=== PATIENT | male | born 1960 | race Caucasian/White ===

== ENCOUNTER 2016-08-29 05:10 | Inpatient (IN) | payer OTHER ==
[~2016-08-29] VITALS: Ht 185.4 cm; Wt 104.3 kg
[~2016-08-29 05:10] MED LIST: CRESTOR40 M2 PO; LISINOPRIL10 M1 PO; MARI PO; MIRTAZAPINE15 M2 PO; OXYCODONE HCL15 M1 PO; ZOLOFT100 M1 PO
--- NOTE | 2016-08-29 12:24 | Patient Discharge Instructions ---
Discharge Instructions General Discharge Information You were seen/treated for: Right knee OA/DJD You had these procedures: 08/29/2016 right total knee arthroplasty Watch for these problems: Redness, swelling, fever, signs of infection. Uncontrolled pain, Excessive bleeding. Decreased range of motion or unable to bear weight. Chest pain, shortness of breath. Call Surgeon to remove: Nick (14 DAYS) Do not soak the wound: Yes No bath, but you may shower: Yes Other wound care: Daily dry dressing changes starting postop day #2 Diet Continue normal diet: Yes Activity Activity Self Limited: Yes Activity Limited to: Weight bear as tolerated Additional ACTIVITY Info: Daily physical therapy Acute Coronary Syndrome Inclusion Criteria At DC or during hospital stay patient has or had the following: ACS DIAGNOSIS No Discharge Core Measures Meds if any: Prescribed or Continued at Discharge Meds if any: NOT Prescribed or Continued at Discharge Congestive Heart Failure Inclusion Criteria At DC or during hospital stay patient has or had the following: CHF DIAGNOSIS No Discharge Core Measures Meds if any: Prescribed or Continued at Discharge Meds if any: NOT Prescribed or Continued at Discharge Cerebrovascular accident Inclusion Criteria At DC or during hospital stay patient has or had the following: CVA/TIA Diagnosis No Discharge Core Measures Meds if any: Prescribed or Continued at Discharge Meds if any: NOT Prescribed or Continued at Discharge Venous thromboembolism Inclusion Criteria VTE Diagnosis No VTE Type NONE VTE Confirmed by (Test) NONE Discharge Core Measures - Per Current guidelines, there needs to be overlap - treatment for the first 5 days of Warfarin therapy. - If discharged on Warfarin prior to 5 days of - overlap therapy, the patient will need to be - assessed for post discharge needs including - *Post discharge parental anticoagulation - *Warfarin and/or parental anticoagulation education - *Follow up date to check INR post discharge At least 5 days overlap therapy as Inpatient No Meds if any: Prescribed or Continued at Discharge Note: Overlap Therapy is Warfarin and Anticoagulant Meds if any: NOT Prescribed or Continued at Discharge
[2016-08-29] MEDS ORDERED: MIRALAX17 G1 PO (12:26)
[2016-08-29] MEDS ORDERED: ASPIRIN325 M2 PO (12:26)
[2016-08-29] MEDS ORDERED: MORPHINE SULFAT30 M3 PO (12:26)
[2016-08-29] MEDS ORDERED: COLACE100 M1 PO (12:26)
[2016-08-29] MEDS ORDERED: DILAUDID4 M1 PO (12:26)
--- NOTE | 2016-08-29 12:27 | Admission Core Measures ---
Admission Meds I reviewed the following Meds: Current Medications Sig/Alfred Start time Last Medication Dose Stop Time Status Admin Acetaminophen 975 MG ONCE 08/29 NR (Tylenol) 08/29 2358 Atorvastatin Calcium 80 MG 1700 08/29 170 UNVr (Lipitor) Cefazolin Sodium 2,000 MG ONCE 08/29 0000 NR (Kefzol-Ancef Inj) 08/29 2358 Lisinopril 10 MG DAILY 08/30 1000 UNVr (Prinivil) Mirtazapine 15 MG AT BEDTIME 08/29 2199 UNVr (Remeron) Oxycodone HCl 10 MG ONCE 08/29 0000 NR (Roxicodone) 08/29 2358 Sertraline HCl 100 MG BID 08/29 2199 UNVr (Zoloft) Acute Coronary Syndrome Inclusion Criteria ACS Diagnosis No Inpatient Core Measures LDL Reminder: If No, please order W/I first 24hr of stay Congestive Heart Failure Inclusion Criteria CHF Diagnosis No Cerebrovascular accident Inclusion Criteria CVA/TIA Diagnosis No Inpatient Core Measures Bedside Swallow Eval Reminder: If BSE failed, place ST order Antithrombotic Reminder: Order Antithrombotic Medication by end of day 2 Antithrombotic Reminder: Document Reason Antithrombotic Not ordered by end of day 2 AFIB/Flutter Reminder: If Present, add to problem list AFIB/Flutter Reminder: Order Anticoag Medication for pts with AFIB/Flutter Atherosclerosis Reminder: If Present, add to problem list LDL Reminder: If No, please order W/I first 24hr of stay PT Order Reminder: If No, please order Venous thromboembolism Inpatient Core Measures VTE Risk Factors: Age > 40, Obesity, Surgery VTE Prophylaxis Ordered Inpt [facility] Pharm No [facility] VTE prophylaxis d/t No contraindications No VTE Pharm Prophylaxis d/t No contraindications Inclusion Criteria - Per Current guidelines, there needs to be overlap - treatment for the first 5 days of Warfarin therapy. - Parenteral Anticoagulation (IV or SC) needs to be - given along with Warfarin therapy. VTE Diagnosis No VTE Type NONE VTE Confirmed by (Test) NONE Problem List As ranked by this Provider includes Assessment & Plan 1. S/P total knee arthroplasty HOME MEDS Home Med List Aspirin (Aspirin*) 325 MG TABLET 1 TAB PO BID BLOOD THINNER Cannabis (Marijuana Oil) 1 amp AMP 1 UNIT PO DAILY PRN PAIN (Reported) Docusate Sodium (Colace) 100 MG CAPSULE 1 CAP PO BID PRN CONSTIPATION Hydromorphone HCl (Dilaudid) 4 MG TABLET 1-2 TAB PO Q4-6H PRN PAIN Lisinopril 10 MG TABLET 1 TAB PO DAILY HTN (Reported) Mirtazapine 15 MG TABLET 1 TAB PO AT BEDTIME SLEEP HELP (Reported) Morphine Sulfate (Morphine Sulfate ER) 30 MG TABLET.ER 1 TAB PO BIDP PAIN Oxycodone HCl 15 MG TABLET 1 TAB PO TID PAIN (Reported) Polyethylene Glycol 3350 (Miralax) 17 GRAM POWD.PACK 1 PAC PO DAILY PRN CONSTIPATION Rosuvastatin Calcium (Crestor) 40 MG TABLET 1 TAB PO DAILY CHOLESTEROL ( Reported) Sertraline HCl (Zoloft) 100 MG TABLET 1 TAB PO BID DEPRESSION (Reported)
--- NOTE | 2016-08-29 12:29 | Discharge Summary ---
Visit Information Visit Dates Admission Date: 08/29/16 Discharge Date: 08/31/06 Hospital Course Course Attending Physician: SJ GARCES MD Primary Care Physician: GALLITO YAN MD Hospital Course: Patient admitted to floor following procedure below. Patient ambulated with PT upon arrival to the floor. Patient continued to progress well. Upon discharge patient is afebrile, tolerating diet, pain controlled, ambulating well with rolling walker and PT. Complications: None Allergies: Coded Allergies: No Known Allergies (08/26/16) Significant Procedures: 08/29/16 right total knee arthroplasty Disposition Summary Disposition Principal Diagnosis: Right knee primary OA/DJD Additional Diagnosis: None Discharge Disposition: home health services Discharge Instructions General Discharge Information Code Status: Full Code Patient's Diet: Resume normal diet Patient's Activity: Weightbearing as tolerated Daily physical therapy Follow-Up Instructions/Appts: Call office to schedule/confirm appointment. Medications at Discharge Discharge Medications: Stop taking the following medications: Oxycodone HCl (Oxycodone HCl) 15 MG TABLET ORAL THREE TIMES DAILY Continue taking these medications: Sertraline HCl (Zoloft) 100 MG TABLET 1 Tablet ORAL TWICE DAILY Rosuvastatin Calcium (Crestor) 40 MG TABLET 1 Tablet ORAL DAILY Lisinopril (Lisinopril) 10 MG TABLET 1 Tablet ORAL DAILY Mirtazapine (Mirtazapine) 15 MG TABLET 1 Tablet ORAL AT BEDTIME Cannabis (Marijuana Oil) 1 amp AMP 1 Unit ORAL DAILY as needed for PAIN Start taking the following new medications: Morphine Sulfate (Morphine Sulfate ER) 30 MG TABLET.ER 1 Tablet ORAL 2 x Daily as needed Qty = 6 No Refills Hydromorphone HCl (Dilaudid) 4 MG TABLET 1-2 Tablet ORAL Q4-6H as needed for PAIN Qty = 36 No Refills Aspirin (Aspirin*) 325 MG TABLET 1 Tablet ORAL TWICE DAILY Qty = 60 No Refills Docusate Sodium (Colace) 100 MG CAPSULE 1 Capsule ORAL TWICE DAILY as needed for CONSTIPATION Qty = 30 No Refills Polyethylene Glycol 3350 (Miralax) 17 GRAM POWD.PACK 1 Packet ORAL DAILY as needed for CONSTIPATION Qty = 14 No Refills Instructions: dissolve in water Copies To: GALLITO YAN MD
--- NOTE | 2016-08-29 14:33 | PN- Orthopedic ---
Subjective Subjective: Post op check Awake post op No pain - pt had spinal anesthesia denies nausea or other complaints Objective Vital Signs and I&Os VSS, afebrile General; alert and oriented times three Chest: clear anteriorly bilaterally, RRR Abd: soft, good bs Ext: warm, no edema, no calf tenderness, positive sensate, good strength BLE On Q in place Wound: RLE wrapped in COLE - dry dressing Assessment/Plan Assessment/Plan 55 yo male s/p R TKR On Q Pain mgmt PT - wbat asa 325mg po bid for dvt ppx Core Measures/Miscellaneous Mauro Catheter Date In: 08/29/16 Still Needed? Yes (24 hrs post op) Venous Thromboembolism VTE Risk Factors: Age > 40, Surgery VTE Contraindications: No Contraindications VTE Prophylaxis Ordered Inpt: Mech & Pharm VTE Diagnosis: No VTE Type: NONE VTE Confirmed by (Test): NONE Beta Matt Is Beta Matt a Home Med? No Antibiotics Is Patient on Antibiotics? Yes If Yes: prophylaxis (24 hrs post op)
--- NOTE | 2016-08-29 15:57 | Operative Report ---
Operative/Inv Procedure Report Surgery Date: 08/29/16 Name of Procedure: Right total knee replacement Pre-Operative Diagnosis: Primary right knee DJD Post-Operative Diagnosis: Same Estimated Blood Loss: 50ml to 100ml Surgeon/Pool Hall Inspector: DEZ UNGER,SJ Mena Anesthesia: block Operative/Procedure Note Note: Description of Procedure: The patient was taken to the operating room and positively identified. After induction of spinal anesthesia and administration of appropriate pre-operative antibiotics, the patient was positioned supine on the operating room table and all bony prominences were well padded. A well-padded pneumatic tourniquet was placed on the right upper thigh. After performing a surgical timeout, the right lower extremity was prepped and draped in the usual sterile fashion. After exsanguination with Esmarch the tourniquet was inflated to 250mm of mercury. A standard medial parapatellar approach was made to the knee. This was carried down through skin and subcutaneous tissue to the level of the fascia. Meticulous hemostasis was maintained with Bovie electrocautery. The extensor mechanism and patellar retinaculum were opened sharply and the patella was everted. The infrapatellar fat was resected in order to improve exposure. Osteophytes were trimmed from the patella and femoral condyles and the patella was re-everted and tucked laterally. A medial release was performed and the cruciate ligaments were resected. The tibia was then subluxed anteriorly. Utilizing the appropriate extra-medullary guide, the proximal tibia was trimmed perpendicular to the long axis of the tibial shaft. Attention was then turned to the femur. After opening the medullary canal, the distal femoral cut was made in 6 degrees of valgus utilizing the appropriate intra-medullary guide. The extension gap was checked and found to be appropriate. The femur was then sized and the remainder of the femoral cuts were made with a size 5 4-in-1 femoral cutting guide. The flexion gap was checked and found to be symmetric and appropriate. The knee was then trialed with a size 5 femoral component, a size X tibial component and a size 9 mm polyethylene insert. The patella was not resurfaced due to its excellent preoperative condition. This yielded excellent range of motion, stability and patellar tracking. All trial components were removed and the knee was copiously irrigated with sterile saline. All components were cemented into place with Parth Simplex cement. All the components were of the [employer] knee system of the above stated sizes. The knee was again irrigated after cementation. The extensor mechanism and patellar retinaculum were repaired using interrupted #1 vicryl suture. The skin was re-approximated with 2-0 vicryl and closed with mary lou. A sterile dressing was applied, the tourniquet was deflated, the patient was awakened and taken to the recovery room in satisfactory condition.
[2016-08-29 17:08] VITALS: BP 130/62
--- NOTE | 2016-08-29 17:08 | NUR ---
NSG NOTE: PATIENT ARRIVED TO FLOOR AT 1708 VIA STRETCHER FROM PACU ACCOMPANIED BY DISTRBUTION; PATIENT A/OX3, RA, VSS (SEE VITALS), DENIES PAIN AT THIS TIME; ON-Q IN PLACE IN RT ADDUCTOR CANAL; +CMS, IVF HUNG PER ORDER; ALPS ON; JONO STOCKING TO LT LEG; COLE WRAP DSG C/D/I TO RT KNEE; IST PROVIDED TO PATIENT AND EXPLAINED USE/IMPORTANCE; ORIENTED TO ROOM, CALL [facility] IN REACH; WILL CONT TO MONITOR
[2016-08-29 20:07] VITALS: BP 120/66
[2016-08-29 23:59] VITALS: BP 104/66
--- NOTE | 2016-08-30 01:03 | NUR ---
PT HAS NOT VOIDED SINCE COMING TO FLOOR. BLADDER SCAN SHOWING >999. PT UNSUCCESSFUL AT VOIDING ON HIS OWN. SURGICAL PA NIKOLE BAL NOTIFIED. VERBAL ORDER RECEIVED TO STRAIGHT CATH X 1. WILL MONITOR.
[2016-08-30 03:04] VITALS: BP 110/62
--- NOTE | 2016-08-30 06:54 | NUR ---
PT HAS NOT VOIDED. BLADDER SCAN SHOWING 230ML. PT DENIES URGE TO VOID AT THIS TIME. SURGICAL PA NOTIFIED. VERBAL ORDER RECEIVED TO MONITOR PT FOR NOW. IF PT STILL HAS NOT VOIDED AFTER WORKING WITH PHYSICAL THERAPY THEN SURGICAL TO BE NOTIFIED FOR STRAIGHT CATH ORDER.
--- NOTE | 2016-08-30 07:01 | PN- Orthopedic ---
Subjective Subjective: No complaints. Required straight catheterization around 1 am for 900 mls of urine. Has not voided since then. Going to try getting up and walking to see if that assists with voiding. Tolerating clears. No nausea. Denies dizziness. No shortness of breath. No chest pains. Objective Vital Signs and I&Os Vital Signs Date Time Temp Pulse Resp B/P Pulse O2 O2 Flow FiO2 Ox Delivery Rate 08/30 0345 92 Nasal 2.0L Cannula 08/30 0304 97.5 54 18 110/62 89 Nasal 2.0L Cannula 08/30 0000 92 Nasal 2.0L Cannula 08/29 2359 97.6 57 18 104/66 90 Nasal 2.0L Cannula 08/29 2006 98.2 66 20 120/66 91 08/29 1931 Room Air Room Air 08/29 1708 97.5 76 18 130/62 94 Room Air Intake & Output 08/30 0800 08/30 0000 / 1600 08/29 0800 08/29 0000 02/ 1600 Intake Total 600 300 Output Total 950 Balance -350 300 Intake, IV 600 300 Output, Urine 950 Patient 230 lb Weight Physical Exam: General - alert & oriented x 3. comfortable. no acute distress. Lungs - clear bilaterally. no w/r/r. Cardiac - s1s2. reg. Abdomen - soft. nontender. Extremities - warm bilaterally. dressing c/d/i. nvi. calves soft and nontender b /l. on q in place. Assessment/Plan Assessment/Plan This 55 year old white male POD#1 s/p R TKR tolerating diet. continue iv fluids until voiding start flomax daily dressing change POD#2 likely remove on q POD#2 continue PT - wbat asa bid - dvt ppx f/u labs d/c planning will d/w Core Measures/Miscellaneous Mauro Catheter Date In: 08/29/16 Venous Thromboembolism VTE Risk Factors: Age > 40, Surgery VTE Contraindications: No Contraindications VTE Prophylaxis Ordered Inpt: [facility]ch [facility] Pharm VTE Diagnosis: No VTE Type: NONE VTE Confirmed by (Test): NONE Beta Matt Is Beta Matt a Home Med? No Antibiotics Is Patient on Antibiotics? Yes If Yes: prophylaxis (24 hrs post op)
[2016-08-30 08:00] LABS: ABSOLUTE BASOPHIL COUNT 0 /CUMM (0.0-0.2); ABSOLUTE EOSINOPHIL COUNT 0 /CUMM (0.0-0.7); ABSOLUTE GRANULOCYTE CT 11.1 /CUMM (1.4-6.5); ABSOLUTE LYMPH COUNT 1.1 /CUMM (1.2-3.4); ABSOLUTE MONOCYTE COUNT 0.5 /CUMM (0.10-0.60); BASOPHIL % 0 % (0.0-2.0); EOSINOPHIL % 0.1 % (0-5); HEMATOCRIT 39.7 % (42-52); MEAN CORPUSCULAR HGB CONC 33.5 G/DL (33.0-37.0); MEAN CORPUSCULAR VOLUME 86.6 FL (80.0-94.0); MEAN PLATELET VOLUME 10.1 FL (7.4-10.4); RBC DISTRIBUTION WIDTH 14.7 % (11.5-14.5); RED BLOOD CELL CT 4.58 /CUMM (4.70-6.10); WHITE BLOOD CELL COUNT 12.7 /CUMM (4.8-10.8)
[2016-08-30 08:35] LABS: PLATELET COUNT 164 /CUMM (130-400)
[2016-08-30 08:36] LABS: GRANULOCYTE % 87.3 % (42.2-75.2)
[2016-08-30 08:47] VITALS: BP 126/84
[2016-08-30 12:06] VITALS: BP 124/64
[2016-08-30 16:23] VITALS: BP 140/72
[2016-08-30 23:11] VITALS: BP 152/88
--- NOTE | 2016-08-31 07:07 | PN- Orthopedic ---
Subjective Subjective: POD#2 S/P RIGHT TKA NO COMPLAINTS THIS AM DENIES CP, SOB, NO N+V WITH DIET DOING WELL WITH PT Objective Vital Signs and I&Os Vital Signs Date Time Temp Pulse Resp B/P Pulse O2 O2 Flow FiO2 Ox Delivery Rate / 2311 98.1 81 20 152/88 94 / 1623 97.4 87 20 140/72 98 02/ 1206 98.3 86 18 124/64 97 Room Air 08/30 0847 97.5 71 18 126/84 96 Room Air / 0845 122/78 Intake & Output / 0800 02 0000 08/30 1600 08/30 0800 08/30 0000 08/29 1600 Intake Total 115 906 0670 600 300 Output Total 400 2150 3150 950 Balance -280 -1250 -2125 -350 300 Intake, IV 225 600 300 Intake, Oral 120 900 800 Number 0 Bowel Movements Output, Urine 400 2150 3150 950 Patient 230 lb Weight Physical Exam: CV: RRR LUNGS: CLEAR ABD: +BS EXT: DRSG CHANGED, WOUND C/D/I NO CALF TENDERNESS BILAT DISTAL CMS INTACT Assessment/Plan Assessment/Plan ORTHO STABLE PLAN CLEARED FRO HOME D/C TODAY ASA FOR DVT PROPHYLAXIS F/U DR GARCES 6 WEEKS Core Measures/Miscellaneous Mauro Catheter Date In: 08/29/16 Venous Thromboembolism VTE Risk Factors: Age > 40, Surgery VTE Contraindications: No Contraindications VTE Prophylaxis Ordered Inpt: Mech & Pharm VTE Diagnosis: No VTE Type: NONE VTE Confirmed by (Test): NONE Beta Matt Is Beta Matt a Home Med? No Antibiotics Is Patient on Antibiotics? Yes If Yes: prophylaxis (24 hrs post op)
[2016-08-31 07:56] VITALS: BP 138/76
== END 2016-08-31 09:18 | disposition home health service (06) | DRG 470 ==
LOC: ENRESERVTM → ENRESERVDT → ENPENDDIS 05:10 → 2NB 05:10 → SDA 05:10 → EDSEX 07:00 → SDA 07:00 → EDBEDREQ 13:30 → 2NB 17:07
PROVIDERS: Physician Assistant Surgical; ADMIT Orthopaedic Surgery
PROC: 0SRC0J9 Replacement of Right Knee Joint with Synthetic Substitute, Cemented, Open Approach (ICD-10-PCS; principal; 2016-08-29)
DX: M17.11 Unilateral primary osteoarthritis, right knee (principal); I10 Essential (primary) hypertension; E78.5 Hyperlipidemia, unspecified; F17.290 Nicotine dependence, other tobacco product, uncomplicated
CPT/HCPCS: 2NBSP; 36415; 82436; 88305; 97110-GO; 97116-GO; 97161-GP; 97530-GO; C1713; J0690; J2405; J2795